=== PATIENT | male | born 1940 | race Caucasian/White ===

== ENCOUNTER 2017-07-18 12:57 | Emergency (ER) | payer OTHER ==
[2017-07-18 13:06] VITALS: TEMP 98.2; BMI 25.0
[2017-07-18] MEDS ORDERED: COLCHICINE 0.6 MG TABLET (FP) PO ONE ×2 (14:02→14:54)
[2017-07-18] MEDS ORDERED: INDOMETHACIN 50 MG CAPSULE PO ONE (14:02)
[2017-07-18] MEDS ORDERED: COLCHICINE 0.6 MG TABLET (FP) ONE ×2 (14:11→14:19)
--- NOTE | 2017-07-18 14:16 | PDOC ---
History of Present Illness - General History Source: Patient - History of Present Illness Occurred: reports: other (4 days) Lower Extremity Pain Location: left: 1st toe <Jeffrey White - Last Filed: 07/18/17 16:12> <Luther Craig - Last Filed: 07/18/17 16:39> - General Chief Complaint: Pain Stated Complaint: PAIN Time Seen by Provider: 07/18/17 13:07 Past History - Past Medical History Cardiac Disorders: Yes COPD: No Diabetes: Yes HTN: Yes Hypercholesterolemia: Yes - Surgical History Cardiac Surgery: Yes (bypass) - Immunization History Td Vaccination: (unknown) Immunization Up to Date: (unknown) - Suicide/Smoking/Psychosocial Hx Smoking Status: No Smoking History: Never smoked Years of Tobacco Use: 15 Have you smoked in the past 12 months: No Number of Cigarettes Smoked Daily: 2 Cigars Per Day: 0 Information on smoking cessation initiated: No Hx Alcohol Use: No Drug/Substance Use Hx: No Substance Use Type: None <Jeffrey White - Last Filed: 07/18/17 16:12> <Luther Craig - Last Filed: 07/18/17 16:39> - Past Medical History Allergies/Adverse Reactions: Allergies Allergy/AdvReac Type Severity Reaction Status Date / Time No Known Allergies Allergy Verified 07/18/17 13:05 Home Medications: Ambulatory Orders Amlodipine Besylate [Norvasc -] 10 mg PO DAILY 11/04/13 Aspirin [ASA -] 81 mg PO DAILY 11/04/13 Ciprofloxacin HCl [Cipro] 500 mg PO BID #10 tablet 11/04/13 Glipizide [Glipizide ER] 2.5 mg PO DAILY 11/04/13 Levothyroxine [Synthroid -] 75 mcg PO DAILY 11/04/13 Losartan/Hydrochlorothiazide [Losartan-Hctz 100-25 mg Tab] 1 each PO DAILY 11/04 Rosuvastatin Calcium [Crestor] 10 mg PO DAILY 11/04/13 Saxagliptin HCl [Onglyza] 2.5 mg PO DAILY 11/04/13 Silodosin [Rapaflo] 8 mg PO DAILY 11/04/13 Tamsulosin HCl [Flomax] 0.4 mg PO DAILY 11/04/13 Review of Systems - Review of Systems Constitutional: No: Chills, Fever, Malaise, Weakness Musculoskeletal: Yes: Joint Pain, Joint Swelling <Jeffrey White - Last Filed: 07/18/17 16:12> *Physical Exam - Vital Signs Last Vital Signs Temp Pulse Resp BP Pulse Ox 98.2 F 69 20 137/63 99 07/18/17 13:05 07/18/17 13:05 07/18/17 13:05 07/18/17 13:05 07/18/17 13:05 - Physical Exam General Appearance: Yes: Appropriately Dressed. No: Apparent Distress HEENT: positive: Normal Voice Neck: positive: Supple Respiratory/Chest: negative: Respiratory Distress Extremity: positive: Other (erythema w/ swelling and increased warmth of L great toe, pedal pulses intact, no induration, no e/o tinea pedis) <Jeffrey White Last Filed: 07/18/17 16:12> - Vital Signs Last Vital Signs Temp Pulse Resp BP Pulse Ox 98.2 F 69 20 137/63 99 07/18/17 13:05 07/18/17 13:05 07/18/17 13:05 07/18/17 13:05 07/18/17 13:05 <Luther Craig - Last Filed: 07/18/17 16:39> Heart Score/ECG Review #1 ECG reviewed & interpreted by me at: 16:30 General ECG Interpretation: Sinus Rhythm, Normal Rate (71), Normal Intervals ( qtc 410), No acute ischemic changes <Luther Craig - Last Filed: 07/18/17 16:39> ED Treatment Course - LABORATORY CBC & Chemistry Diagram: 07/18/17 14:10 07/18/17 14:10 - RADIOLOGY Radiology Studies Ordered: Category Date Time Status FOOT-LEFT [RAD] Stat Radiology 07/18/17 14:01 Ordered <eJffrey White Last Filed: 07/18/17 16:12> - LABORATORY CBC & Chemistry Diagram: 07/18/17 14:10 07/18/17 14:10 - ADDITIONAL ORDERS Additional order review: Laboratory Results 07/18/17 07/18/17 07/18/17 14:10 14:10 14:10 Sodium 139 Potassium 5.4 H Chloride 111 H Carbon Dioxide 18 L Anion Gap 10 BUN 82 H D Creatinine 3.7 H D Creat Clearance w eGFR 16.05 Random Glucose 249 H D Uric Acid 11.2 H D Calcium 8.2 L Total Bilirubin 0.6 D AST 9 L D ALT 14 D Alkaline Phosphatase 75 C-Reactive Protein Cancelled 1.6 H Total Protein 6.8 Albumin 3.6 07/18/17 14:10 RBC 3.38 L D MCV 90.0 MCHC 33.0 RDW 14.5 MPV 9.6 Neutrophils % 83.5 H Lymphocytes % 7.5 L D Monocytes % 7.5 D Eosinophils % 1.1 Basophils % 0.4 - Medications Given in the ED: ED Medications Discontinued Medications Generic Name Dose Route Start Last Admin Trade Name Frankyq PRN Reason Stop Dose Admin Colchicine 1.2 mg 07/18/17 14:02 07/18/17 14:25 Colcrys - PO 07/18/17 14:03 1.2 mg ONCE ONE Administration Colchicine 0.6 mg 07/18/17 14:54 07/18/17 15:25 Colcrys - PO 07/18/17 14:55 0.6 mg ONCE ONE Administration Indomethacin 50 mg 07/18/17 14:02 07/18/17 14:30 Indocin - PO 07/18/17 14:03 Not Given ONCE ONE Ketorolac Tromethamine 30 mg 07/18/17 14:17 07/18/17 14:25 Toradol Injection - IM 07/18/17 14:18 30 mg ONCE ONE Administration <Luther Craig - Last Filed: 07/18/17 16:39> Medical Decision Making - Medical Decision Making 07/18/17 14:08 76-year-old male, history of hypertension, [id number] diabetic, here with pain to right foot. Patient states for the past several days has had pain, swelling and redness to left great toe that is radiating into sole of foot and ankle, now unable to bear weight. Denies recent trauma, fever or chills. Patient states she had similar symptoms to left great toe 3 years ago that resolved on its own. Is concerned he might have gout. See exam Possible gout vs infxn to L great toe, unlikely septic joint Well margie and stable -labs including uric acid, esr and crp -XR -trial of dose of colchicine/nsaid in ED and reassess 07/18/17 14:53 Patient has mild leukocytosis to 14 on labs with uric acid of 11 and mildly elevated CRP. Strongly suspect gout, but will also cover for possible cellulitis 07/18/17 15:42 On lab review, patient's creatinine is 3.7, (baseline ~2 based on records here) with potassium of 5.4. Random glucose 249, no gap. Patient may need admission for acute on chronic renal failure. Will refrain from further NSAID in ED. IVF in progress. Will d/w PMD and admit 07/18/17 15:[address] Jus Montez, who states patient's recent creatinine lvls have been around 3. 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 Agrees with admission given mild worsening in renal function and mild hyperkalemia. [facility] patient to be admitted to hospitalist <Jeffrey White - Last Filed: 07/18/17 16:12> *DC/Admit/Observation/Transfer - Discharge Dispostion Admit: Yes <Jeffrey White - Last Filed: 07/18/17 16:12> <Luther Craig - Last Filed: 07/18/17 16:39> Diagnosis at time of Disposition: Podagra, Hyperkalemia Chronic renal insufficiency Qualifiers: Chronic kidney disease stage: unspecified stage Qualified Code(s): N18.9 - Chronic kidney disease, unspecified - Discharge Dispostion Condition at time of disposition: Improved - Referrals Referrals: Jus Montez MD [Primary Care Provider] - - Patient Instructions Additional Instructions: You most likely have gout but we cannot rule out infection, so you were treated for both. Return for worsening of symptoms, otherwise follow-up with Dr. Montez this week - Post Discharge Activity
[2017-07-18] MEDS ORDERED: KETOROLAC TROMETHAMINE 30 MG/1 ML VIAL IM ONE (14:17)
[2017-07-18 14:18] LABS: BASO % 0.4 % (0-2.0); EOS % 1.1 % (0-4.5); HEMATOCRIT 30.4 % (35.4-49); LYMPH % 7.5 % (8-40); MCH 29.7 pg (25.7-33.7); MEAN PLT VOLUME 9.6 fl (7.5-11.1); MONO % 7.5 % (3.8-10.2); NEUT % 83.5 % (42.8-82.8); PLATELET COUNT 227 K/MM3 (134-434); RBC 3.38 M/mm3 (4.00-5.60); RDW 14.5 % (11.9-15.9); WHITE BLOOD COUNT 14.3 K/mm3 (4.0-10.0)
[2017-07-18] MEDS ORDERED: KETOROLAC TROMETHAMINE 30 MG/1 ML VIAL ONE (14:20)
[2017-07-18 14:42] LABS: URIC ACID 11.2 mg/dL (2.6-7.2)
[2017-07-18 14:53] LABS: ALBUMIN 3.6 g/dl (3.4-5.0); ANION GAP 10 (8-16); BILIRUBIN,TOTAL 0.6 mg/dL (0.2-1.0); BLOOD UREA NITROGEN 82 mg/dL (7-18); CALCIUM 8.2 mg/dL (8.5-10.1); CHLORIDE 111 mmol/L (98-107); CO2 18 mmol/L (21-32); CREATININE 3.7 mg/dL (0.7-1.3); GLUCOSE,RANDOM 249 mg/dL (74-106); POTASSIUM 5.4 mmol/L (3.5-5.1); SGOT/AST 9 U/L (15-37); SGPT/ALT 14 U/L (12-78); SODIUM 139 mmol/L (136-145); TOT PROT 6.8 g/dl (6.4-8.2)
[2017-07-18 14:54] LABS: ALK PHOS 75 U/L (45-117)
[2017-07-18] MEDS ORDERED: CEFAZOLIN 1 GM in DEXTROSE 5%-WATER - 50 ML IVPB ONE (15:45)
[2017-07-18] MEDS ORDERED: SODIUM CHLORIDE 500 ML IV STA (15:46)
[2017-07-18] MEDS ORDERED: CEFAZOLIN 1 GM PUSH 1 GM/10 ML DISP.SYRIN IVPUSH ONE (16:39)
--- NOTE | 2017-07-18 17:00 | CONSULT ---
Consult Consult Specialty:: internal medicine Reason for Consultation:: assess admission - History of Present Illness History of Present Illness: 76 year old male with pmg of htn, dm, ckd, and gout presents today with increased pain, redness and swelling to right toe. Pt had similar episode to left toe 3 years ago which improved with injections and "pills". Otherwise, denies any complains. Pt able to ambulate without difficulty. denies any chest pain, sob, n/v/d, fever/chills - History Source History Provided By: Patient, Family Member Limitations to Obtaining History: No Limitations - Past Medical History Cardio/Vascular: Yes: HTN Renal/: Yes: Renal Inusuff Rheumatology: Yes: Gout Endocrine: Yes: Diabetes Mellitus - Past Surgical History Past Surgical History: Yes: CABG - Alcohol/Substance Use Hx Alcohol Use: No - Smoking History Smoking history: Never smoked Have you smoked in the past 12 months: No Aproximately how many cigarettes per day: 2 Home Medications - Allergies Allergies/Adverse Reactions: Allergies Allergy/AdvReac Type Severity Reaction Status Date / Time No Known Allergies Allergy Verified 07/18/17 13:05 - Home Medications Home Medications: Ambulatory Orders Amlodipine Besylate [Norvasc -] 10 mg PO DAILY 11/04/13 Aspirin [ASA -] 81 mg PO DAILY 11/04/13 Ciprofloxacin HCl [Cipro] 500 mg PO BID #10 tablet 11/04/13 Glipizide [Glipizide ER] 2.5 mg PO DAILY 11/04/13 Levothyroxine [Synthroid -] 75 mcg PO DAILY 11/04/13 Losartan/Hydrochlorothiazide [Losartan-Hctz 100-25 mg Tab] 1 each PO DAILY 11/04 Rosuvastatin Calcium [Crestor] 10 mg PO DAILY 11/04/13 Saxagliptin HCl [Onglyza] 2.5 mg PO DAILY 11/04/13 Silodosin [Rapaflo] 8 mg PO DAILY 11/04/13 Tamsulosin HCl [Flomax] 0.4 mg PO DAILY 11/04/13 Family Disease History - Family Disease History Family Disease History: Diabetes: Mother, Heart Disease: Mother Review of Systems Findings/Remarks: as per hpi Physical Exam Vital Signs: Vital Signs Temperature 98.2 F 07/18/17 13:05 Pulse Rate 69 07/18/17 13:05 Respiratory Rate 20 07/18/17 13:05 Blood Pressure 137/63 07/18/17 13:05 O2 Sat by Pulse Oximetry (%) 99 07/18/17 13:05 Constitutional: Yes: Well Nourished, No Distress Cardiovascular: Yes: WNL, Regular Rate and Rhythm. No: Gallop, Murmur Respiratory: Yes: WNL, Regular, CTA Bilaterally. No: Rales, Rhonchi, Tachypnea , Wheezes Gastrointestinal: Yes: WNL, Normal Bowel Sounds. No: Distention, Tenderness Musculoskeletal: Yes: WNL Extremities: Yes: Erythema (right toe) Edema: No ...Motor Strength: WNL Psychiatric: Yes: WNL, Alert, Oriented Labs: CBC, BMP 07/18/17 14:10 07/18/17 14:10 Imaging - Results X-ray: Image Reviewed Problem List - Problems (1) Chronic renal insufficiency Assessment/Plan: Baseline cr around 3 today 3.7 , asymptomatic follows up with outpt business administration program chair pcp marcus Code(s): N18.9 - CHRONIC KIDNEY DISEASE, UNSPECIFIED Qualifiers: Chronic kidney disease stage: unspecified stage Qualified Code(s): N18.9 - Chronic kidney disease, unspecified (2) Hyperkalemia Assessment/Plan: K5.4 today, pt asymptomatic can try 1 dose of kayexalate outpt monitor Code(s): E87.5 - HYPERKALEMIA (3) Gout Code(s): M10.9 - GOUT, UNSPECIFIED Assessment/Plan Pt evaluated. pt clinically appears well. Gout of the affected toe, pt able to ambulate. very mild hyperkalemia and chronic renal insufficiency. Gout: Can d/c home on prednisone 40mg day and then taper over 6 days. Recommend follow up outpt with Rheumatology Hyperkalemia/ renal insuff: monitor, may give one time dose of kayexalate if appropriate. avoid nsaids FOLLOW UP WITH as soon as possible, tomorrow to repeat blood work Follow up with Nephrology this week as soon as you can This patient does not need to be admitted for further management. Plan discussed with and in agreement. Thanks for the consultation.
[2017-07-18] MEDS ORDERED: SODIUM POLYSTYRENE SULFONATE 15 GM/60 ML BOTTLE PO ONE (17:16)
--- NOTE | 2017-07-18 17:19 | PDOC ---
*Physical Exam - Vital Signs Last Vital Signs Temp Pulse Resp BP Pulse Ox 98.2 F 69 20 137/63 99 07/18/17 13:05 07/18/17 13:05 07/18/17 13:05 07/18/17 13:05 07/18/17 13:05 - Physical Exam General Appearance: Yes: Appropriately Dressed. No: Apparent Distress HEENT: positive: Normal Voice Neck: positive: Supple Respiratory/Chest: negative: Respiratory Distress Gastrointestinal/Abdominal: positive: Soft. negative: Tender Integumentary: positive: Dry, Warm Neurologic: positive: Fully Oriented, Alert, Normal Mood/Affect ED Treatment Course - LABORATORY CBC & Chemistry Diagram: 07/18/17 14:10 07/18/17 14:10 - ADDITIONAL ORDERS Additional order review: Laboratory Results 07/18/17 07/18/17 07/18/17 14:10 14:10 14:10 Sodium 139 Potassium 5.4 H Chloride 111 H Carbon Dioxide 18 L Anion Gap 10 BUN 82 H D Creatinine 3.7 H D Creat Clearance w eGFR 16.05 Random Glucose 249 H D Uric Acid 11.2 H D Calcium 8.2 L Total Bilirubin 0.6 D AST 9 L D ALT 14 D Alkaline Phosphatase 75 C-Reactive Protein Cancelled 1.6 H Total Protein 6.8 Albumin 3.6 07/18/17 14:10 RBC 3.38 L D MCV 90.0 MCHC 33.0 RDW 14.5 MPV 9.6 Neutrophils % 83.5 H Lymphocytes % 7.5 L D Monocytes % 7.5 D Eosinophils % 1.1 Basophils % 0.4 - RADIOLOGY Radiology Studies Ordered: Category Date Time Status CHEST X-RAY PORTABLE* [RAD] Stat Radiology 07/18/17 15:44 Completed FOOT-LEFT [RAD] Stat Radiology 07/18/17 14:01 Completed - Medications Given in the ED: ED Medications Discontinued Medications Generic Name Dose Route Start Last Admin Trade Name Freq PRN Reason Stop Dose Admin Colchicine 1.2 mg 07/18/17 14:02 07/18/17 14:25 Colcrys - PO 07/18/17 14:03 1.2 mg ONCE ONE Administration Colchicine 0.6 mg 07/18/17 14:54 07/18/17 15:25 Colcrys - PO 07/18/17 14:55 0.6 mg ONCE ONE Administration Cefazolin Sodium 1 gm/ 50 mls @ 100 mls/hr 07/18/17 15:45 07/18/17 16:53 Dextrose IVPB 07/18/17 16:14 100 mls/hr ONCE ONE Administration Sodium Chloride 500 mls @ 500 mls/hr 07/18/17 15:46 07/18/17 16:53 Normal Saline - IV 07/18/17 16:45 500 mls/hr ASDIR STA Administration Indomethacin 50 mg 07/18/17 14:02 07/18/17 14:30 Indocin - PO 07/18/17 14:03 Not Given ONCE ONE Ketorolac Tromethamine 30 mg 07/18/17 14:17 07/18/17 14:25 Toradol Injection - IM 07/18/17 14:18 30 mg ONCE ONE Administration Medical Decision Making - Medical Decision Making 07/18/17 17:17 As per ASSOCIATE PROFESSOR OF BIOSTATISTICS Sofi who discussed case with Dr. Montez, states as patient's creatinine near baseline, can give dose of Kayexalate in ED and discharge. Patient has follow-up with his partner marketing intern this week. To also f/u with Dr Montez this week to rpt labs. Per podagra, ASSOCIATE PROFESSOR OF [employer]IOSTATIST[employer] recommending prednisone 40 mg per day and then taper over 6 days. Patient to follow-up with Dr. Wilson of rhematology. Patient given strict precautions to avoid NSAIDs. Strict return precautions given *DC/Admit/Observation/Transfer Diagnosis at time of Disposition: Podagra, Hyperkalemia Chronic renal insufficiency Qualifiers: Chronic kidney disease stage: unspecified stage Qualified Code(s): N18.9 - Chronic kidney disease, unspecified - Discharge Dispostion Disposition: HOME Condition at time of disposition: Improved Decision to Admit order Date/Time: Decision to Admit Order Category Date Time Status Decision to Admit to Hospital Routine Admission 07/18/17 16:06 Active - Prescriptions Prescriptions: Prednisone [Deltasone] 20 mg PO ASDIR #11 tablet Tramadol HCl 50 mg PO Q6H #6 tablet MDD 200mg - Referrals Referrals: Jus Montez MD [Primary Care Provider] - Juan Alberto Wilson MD [Staff Physician] - - Patient Instructions Printed Discharge Instructions: Gout Additional Instructions: You most likely have gout. Take medications as prescribed. This is unlikely an infection and so we will not start antibiotics at this time. Please follow-up with Dr. Wilson of rheumatology to further evaluate gout Please follow-up with Dr. Montez this week to repeat blood work. Please follow- up with your partner marketing intern this week at already scheduled appointment If you start not feeling well, weak, dizzy, nausea or vomiting, fever or chills , return to ER immediately - Post Discharge Activity
[2017-07-18 17:24] VITALS: BP 142/72; PULSE 78
[2017-07-18] MEDS ORDERED: SODIUM POLYSTYRENE SULFONATE 15 GM/60 ML BOTTLE ONE (17:30)
--- NOTE | 2017-07-19 11:30 | EKG ---
Test Reason : Blood Pressure : / mmHG Vent. Rate : 071 BPM Atrial Rate : 071 BPM P-R Int : 146 ms QRS Dur : 078 ms QT Int : 378 ms P-R-T Axes : 061 054 071 degrees QTc Int : 410 ms NORMAL SINUS RHYTHM NORMAL ECG WHEN COMPARED WITH ECG OF 06-NOV-2011 04:31, NO SIGNIFICANT CHANGE WAS FOUND Confirmed by MD Moura Daniel ([id number]) on 07/19/2017 11:30:23 AM Referred By: Confirmed By:Nicolas Moura MD
== END 2017-07-18 17:30 | disposition home or self-care (01) ==
LOC: JER 12:57 → JERFT 12:57 → JER 17:30
PROC: 3E0337Z Introduction of Electrolytic and Water Balance Substance into Peripheral Vein, Percutaneous Approach (ICD-10-PCS; principal; 2017-07-18)
PROC: 3E03329 Introduction of Other Anti-infective into Peripheral Vein, Percutaneous Approach (ICD-10-PCS; 2017-07-18)
PROC: 3E0233Z Introduction of Anti-inflammatory into Muscle, Percutaneous Approach (ICD-10-PCS; 2017-07-18)
DX: M10.9 Gout, unspecified (principal); E87.5 Hyperkalemia; I25.10 Atherosclerotic heart disease of native coronary artery without angina pectoris; I13.10 Hypertensive heart and chronic kidney disease without heart failure, with stage 1 through stage 4 chronic kidney disease, or unspecified chronic kidney disease; N18.9 Chronic kidney disease, unspecified; Z95.1 Presence of aortocoronary bypass graft; E11.9 Type 2 diabetes mellitus without complications; Z79.84 Long term (current) use of oral hypoglycemic drugs
CPT/HCPCS: 36415; 71045-TC-FY; 73630-TC-LT; 80053; 84550; 85025; 85651; 86140; 93005; 93010; 96361; 96365; 96372; 99282-25